=== PATIENT | female | born 1985 | race Caucasian/White ===

== ENCOUNTER 2018-11-13 21:58 | Emergency (ER) | payer OTHER ==
[~2018-11-13] VITALS: Ht 170.2 cm; Wt 58.4 kg
[~2018-11-13 21:58] MED LIST: CEPH-443 PO; HYDR-4011 PO; IBUP-1542 PO; MUPI22OI2 TOP; SULF1TAB31 PO
[2018-11-13 22:15] VITALS: Ht 170.2 cm; Wt 58.4 kg
[2018-11-14] MEDS ORDERED: CEPHALEXIN 500 MG CAP PO ONE (01:30)
[2018-11-14] MEDS ORDERED: LIDOCAINE 1% (MDV) 20 ML INJ SC ONE (01:30)
[2018-11-14] MEDS ORDERED: HYDROCODONE/APAP (10/325) TAB PO ONE (01:30)
[2018-11-14] MEDS ORDERED: TRIMETHOPRIM/SULFAMETHOX (DS) TAB PO ONE (01:30)
[2018-11-14 02:06] VITALS: BP 116/82; PULSE 76; RESP 18
== END 2018-11-14 02:06 | disposition home or self-care (01) ==
LOC: FTE 21:58
DX: L02.412 Cutaneous abscess of left axilla (principal)
CPT/HCPCS: 10060; Z7610